=== PATIENT | female | born 1985 | race Caucasian/White ===

== ENCOUNTER 2024-08-31 13:15 | Observation (INO) | payer BC, SELFPAY ==
[2024-08-31] VITALS (43 sets, daily range): BP systolic 115–135; BP diastolic 68–92; PULSE 59–84; RESP 10–19; TEMP 36.8–36.9; O2SAT 94–100; BMI 28.9; BMI 29.6
--- OUTSIDE RECORDS SUMMARY | 2024-08-31 13:17 | XMS_ITS | Clinical Summary ---
Author Organization [employer] [facility] Address [address] [place] [address] Care Team Providers Care Compliance Representative Dealer Name Role Phone Karen Mccarthy Primary Care Provider Allergies Active Allergy Reactions Criticality Noted Date Comments Diphenhydramine Intolerance-Can't Take 07/04/19 08 Keeps her awake Azithromycin GI Upset Unknown 08/07/2022 Medications albuterol HFA (Ventolin HFA) 90 mcg/actuation inhalerIndicatio ns:Simple chronic bronchitis (HC) Inhale 1-2 Puffs by mouth every 4 hours while awake. 3 Each 1 4 Active fluticasone furoate (ARNUITY ELLIPTA) 100 mcg/actuation inhalerIndicatio ns:Simple chronic bronchitis (HC) Inhale 1 Puff by mouth once daily. 30 Each 5 4 Active predniSONE (DELTASONE) 20 mg tabletIndication s:Simple chronic bronchitis (HC) Take 1-2 Tablets (20-40 mg) by mouth once daily. Take for 3-5 days with breathing exacerbation. 30 Tablet 4 Active atovaquone-progu yisel, 250-100 mg, (MALARONE) 250-100 mg tabletIndication s:Pharmacologic therapy Take 1 Tablet by mouth once daily. Begin 2 days before you get to [facility] and continue until 1 week after exposure for prevention of malaria. 19 Tablet 4 Active acetaZOLAMIDE (DIAMOX) 125 mg tabletIndication s:Counseling for travel Take 125 mg by mouth two times daily. Begin 1 day before through 2 days after arriving at highest altitude. 8 Tablet 4 Active predniSONE (DELTASONE) 20 mg tabletIndication s:Chronic obstructive pulmonary disease, unspecified COPD type (HC) Take 2 tablets daily x 5 days, then 1 tablet daily 15 Tablet 4 Active Active Problems Problem Noted Date Diagnosed Date Variants of migraine, not el sewhere classified, without mention of intractable migraine without mention of status migrainosus Overview (09/19/2006): venous angioma Other acne Immunizations Immunization Administration Dates Next Due COVID-19 vaccine (Moderna 10 0mcg/0.5mL) PF, MDV 03/21/2021 Hepatitis A (Adult) 09/04/2023 Hepatitis B (Peds) 05/03/2000,11/18/1999, 000 MMR 08/07/1995 Td (Age >=7 Years) 08/07/1995 Tdap 07/24/2017,07/04/2007 Typhoid (injectable) 09/04/2023 Yellow Fever 09/04/2023 Family History Medical History Relation Name Comments Good Health Brother Cancer-prostate Father Uterine cancer Maternal Aunt 1 chemo and radiation, needed 2nd round of radiation Cancer-breast Maternal Aunt 2 Diabetes Maternal Grandfather adult o nset Cancer Mother lung cancer Lung cancer Mother Good Health Sister Relation Name Status Comments Brother Father Maternal Aunt 1 Maternal Aunt 2 Maternal Grandfather Mother Sister Social History Tobacco Use Types Packs/Day Years Used Date Smoking Tobacco: Former Smokeless Tobacco: Never Tobacco Cessation:Counseling Given: Yes Comments:quit in 2005 Alcohol Use Standard Drinks/Week Comments Yes 0 (1 standard drink = 0.6 oz pur e alcohol) occ PHQ-2 Answer Date Recorded PHQ-2 TOTAL SCORE 0 06/06/2022 Social Connections Answer Date Recorded Frequency of Communication with Friends and Fami ly 0 06/06/2022 Financial Resource Strain Answer Date R ecorded Difficulty of Paying Living Expenses 3 06/06/2022 Difficulty of Paying Living Expenses Not on file 06/06/2022 Food Insecurity Answer Date Recorded Worried About Running Out of Food in the Last Ye ar 1 06/06/2022 Transportation Needs Answer Date Record ed Lack of Transportation (Medical) 1 06/06/2022 Housing Stability Answer Date Recorded Unable to Pay for Housing in the Last Year 1 06/06/2022 Comments No Sex and Gender Information Value Date Recorded Sex Assigned at Not on file Legal Sex Female 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 Gender Identity Not on file Sexual Orientation Not on file Obstetrics History Para Term AB IAB SAB Ectopic Multiple Livin g Live Births 0 0 0 0 0 0 0 0 0 0 Last Filed Vital Signs Vital Sign Reading Time Taken Comments Blood Pressure 116/78 10/10/2023 11:12 AM CDT Pulse 64 10/10/2023 11:12 AM CDT Temperature 36.8 C (98.3 F) 06/13/2021 11:10 AM FIELD AUTOMOBILE ADJUSTER Respiratory Rate - - Oxygen Saturation 100% 10/10/2023 11:12 AM CDT Inhaled Oxygen Concentration - - Weight 72.6 kg (160 lb) 10/10/2023 11:12 AM CDT Height 167.5 cm (5' 5.95) 10/10/2023 11:12 AM C DT Body Mass Index 25.86 10/10/2023 11:12 AM CDT Plan of Treatment Health Maintenance Due Date Last Done Comments HIV for age 15-65 09/30/1998 Hepatitis C screening for ag e 18-79 09/30/2001 Pneumococcal series for age 6-49 (1 of 2 - PCV) 09/30/2002 Pap test for age 21-65 03/15/2023 , 03/21/2016, 03/21/2016, Additional history exists Depression screening for age 12+ 06/06/2023 06/06/2022, 03/15/2020, 07/24/2017, Additional history exists COVID-19 vaccine series ( season) 2023 04/18/2021, 03/21/2021 BMI (ht and wt on same day) for age 18+ 10/09/2024 10/10/2023, 06/06/2022, 03/14/2021, Additional history exists Influenza Vaccine (Season Ended) 2024 Tetanus booster 07/25/2027 07/24/2017, 06/21, 08/07/1995 Tdap Completed 07/24/2017, 07/04/2007 Procedures Procedure Name Priority Date/Time Associated Diagnosis Comments SALESFORCE SPECIALIST THIN PREP PAP SCREEN IMAGED Routine 03/15/2020 3:06 PM FIELD AUTOMOBILE ADJUSTER Screening for cervical cancer from Last 3 Months or Most Recently Relevant to Health Maintenance Results * SALESFORCE SPECIALIST THIN PREP PAP SCREEN IMAGED (03/15/2020 3:06 PM FIELD AUTOMOBILE ADJUSTER) Case Report Gynecologic Cytology Report Case: [id number] Authorizing Provider: Karen Mccarthy PA Collected: 03/15/2020 1506 Ordering Location: [facility] Received: 03/15/2020 1544 Clinic First Screen: Charanjit Ervin Pathologist: Caryn Spencer MD Specimen: SALESFORCE SPECIALIST ThinPrep Vial Screening, Cervical 03/25/2020 2:54 PM FIELD AUTOMOBILE ADJUSTER [employer] [facility] INTERPRETATION/ RESULT NEGATIVE FOR INTRAEPITHELIAL LESION OR MALIGNANCY (NIL) (none) 03/25/2020 2:54 PM FIELD AUTOMOBILE ADJUSTER [facility] at 1454 FIELD AUTOMOBILE ADJUSTER OTHER NON-NEOPLASTIC FINDING(S) Parakeratosis 03/25/2020 2:54 PM FIELD AUTOMOBILE ADJUSTER [employer] [facility] SPECIMEN ADEQUACY Satisfactory for evaluation Endocervical component present 03/25/2020 2:54 PM FIELD AUTOMOBILE ADJUSTER [employer] ENTRAL LAB[facility]ATORY HPV REQUEST HPV if ASCUS 03/25/2020 2:54 PM FIELD AUTOMOBILE ADJUSTER [employer] [facility] Date of LMP 02/29/2020 03/25/2020 2:54 PM FIELD AUTOMOBILE ADJUSTER [facility] Last Pap Date 03/21/16 03/25/2020 2:54 PM FIELD AUTOMOBILE ADJUSTER [facility] Last Pap Result NIL 0 2:54 PM FIELD AUTOMOBILE ADJUSTER [employer] ENTRAL LABORATORY Abnormal Pap or Rociada Bx in last 5 years No 03/25/2020 2:54 PM FIELD AUTOMOBILE ADJUSTER [employer] ENTRAL LABORATORY Menstrual Status Irregular Periods 03/25/2020 2:54 PM FIELD AUTOMOBILE ADJUSTER [employer] ENTRAL [facility] Rociada Bx Done Today No 03/25/2020 2:54 PM FIELD AUTOMOBILE ADJUSTER [facility] ? ENTRAL LABORATORY Additional Information None given 03/25/2020 2:54 PM FIELD AUTOMOBILE ADJUSTER [employer] ENTRAL LABORATORY Comment: Cytology is screened at [facility], Central Laboratory - [address], [place] [address] and [facility] - [address], [place] [address] and [facility] - [address] [place] [address] Interpreted at [facility], Central Laboratory - [address], [place] [address] Automated Review Successful 03/25/2020 2:54 PM FIELD AUTOMOBILE ADJUSTER [facility]- ENTRAL LABORATORY Comment:Specimen processed s uccessfully by automated medical concierge device, [employer] Note The pap test is a screening technique, not a diagnostic procedure. It is used primarily to screen for squamous cancers and precursor lesions. Published studies have shown that it is subject to both false negative and false positive results. The pap test should not be used as the sole means to diagnose or exclude pre-malignant and malignant lesions. 03/25/2020 2:54 PM FIELD AUTOMOBILE ADJUSTER [facility]- ENTRAL LABORATORY Other (Cervical) Non-Blood / Unknown 03/15/2020 3:06 PM FIELD AUTOMOBILE ADJUSTER 03/15/2020 3:44 PM FIELD AUTOMOBILE ADJUSTER us Karen ANNE PATHOLOGY/CYTOLOGY Rema aparicio Result [facility] [address] [place] [address], [place] from Last 3 Months or Most Recently Relevant to Health Maintenance Insurance Care Teams Compliance Representative Dealer Relationship Specialty Start Date End Date Karen Mccarthy [place] [address] PCP - General Physician Auto Mechanic 03/14/21
--- NOTE | 2024-08-31 13:52 | ED.GENADULT ---
HPI - General Adult General Time Seen by Provider: 13:52 Date Seen: 08/31/24 Chief complaint: Dizziness/Vertigo Stated complaint: numbness in both hands/right arm Time Seen by Provider: 08/31/24 13:52 Source: patient and RN notes reviewed Mode of arrival: ambulatory Limitations: no limitations History of Present Illness HPI narrative: Debbie is a very pleasant 38-year-old female nonsmoker who comes to the emergency room with onset of rapid heart rate tingling of the mouth and hands and feeling like she is going to faint. Suzie notes that last night she did have some beer and with he shots but will woke this morning with no hangover and feeling well. She was actually at her mom's at which time they had just moved some plants. She states that she was holding a plant turned her head to the right and had the sudden onset of racing of her heart weakness and feeling like she was going to pass out. She sat herself on the floor and was leaning up against the garage. She states that her body felt very heavy and she was experiencing some nausea. She was breathing quite fast. Her hands started tingling and EN route to the hospital she felt like they were numb. She states her lips felt funny at that time to. Her lower extremities remain normal. She notes that it feeling was coming in waves. Patient notes that here in the emergency room she is somewhat improved. She moves her head and neck and cannot make this recur. She notes that her hands are still tingling but much improved. No loss of bowel or bladder control recent illnesses chest pain congestion. No loss of bowel or bladder control. No history of DVT, PE, recent extended car rides, recent airline trips. Related Data Home Medications ?Medication ?Instructions ?Recorded ?Confirmed fluticasone furoate 100 1 inh inhalation DAILY 08/31/24 08/31/24 mcg/actuation blister powder for inhalation (Arnuity Ellipta) Allergies Allergy/AdvReac Type Severity Reaction Status Date / Time azithromycin AdvReac Mild Abdominal Verified 08/31/24 13:44 Pain Review of Systems Status of ROS: Reports: 10 or more systems reviewed and unremarkable except as noted in History and below Const: Denies: fever or chills Eyes: Reports: other ([place] like she had rapid blinking of the eyes); Denies: change in vision ENMT: Denies: throat pain or nasal congestion Cardio: Reports: palpitations, lightheadedness and shortness of breath with exertion; Denies: chest pain or swelling of feet/ankles Resp: Reports: shortness of breath; Denies: cough GI: Reports: nausea; Denies: abdominal pain or vomiting : Denies: painful urination Musculo: Denies: back pain or extremity swelling Neuro: Denies: headache or slurred speech PFSH PFSH Social History Smoking Status: Former smoker How often do you have a drink containing alcohol: 2-3 times a week How many standard drinks containing alcohol do you have on a typical day: 3 or 4 AUDIT-C Alcohol total score: 4 Non-prescribed substance use: denies use Exam Narrative: Exam Narrative: Alert and oriented. Nontoxic in appearance. Mentation and speech is normal. EOM is full and pupils equal round reactive. Patient has full movement of the neck rotation flexion extension and does not recreate the symptoms. Heart is hyperdynamic and tachycardic and lungs are clear. Abdomen is soft nontender. Moving all extremities. Lower extremities without calf tenderness or edema. Const: Vital Signs, click to edit/add: Vital Signs - 24 hr 08/31/24 13:36 08/31/24 14:28 08/31/24 14:30 Temperature 98.2 F Pulse Rate Pulse Rate [Pulse Oximeter] 84 Respiratory Rate 18 14 12 Blood Pressure Blood Pressure [Ri ght Upper Arm] 115/77 Pulse Oximetry 100 Oxygen Delivery Me thod Room Air 08/31/24 14:45 08/31/24 14:58 08/31/24 15:00 Temperature Pulse Rate 74 72 Pulse Rate [Pulse Oximeter] Respiratory Rate 15 14 15 Blood Pressure 116/79 Blood Pressure [Ri ght Upper Arm] Pulse Oximetry 96 94 Oxygen Delivery Me thod Room Air 08/31/24 15:15 08/31/24 15:30 08/31/24 15:45 Temperature Pulse Rate 73 65 65 Pulse Rate [Pulse Oximeter] Respiratory Rate 12 13 16 Blood Pressure Blood Pressure [Ri ght Upper Arm] Pulse Oximetry 98 97 97 Oxygen Delivery Me thod 08/31/24 16:00 08/31/24 16:01 08/31/24 16:15 Temperature Pulse Rate 69 71 66 Pulse Rate [Pulse Oximeter] Respiratory Rate 11 L 15 16 Blood Pressure 123/83 Blood Pressure [Ri ght Upper Arm] Pulse Oximetry 98 97 98 Oxygen Delivery Me thod 08/31/24 16:30 08/31/24 16:45 08/31/24 17:00 Temperature Pulse Rate 66 68 74 Pulse Rate [Pulse Oximeter] Respiratory Rate 12 14 19 Blood Pressure Blood Pressure [Ri ght Upper Arm] Pulse Oximetry 100 98 100 Oxygen Delivery Me thod 08/31/24 17:15 08/31/24 17:28 08/31/24 17:29 Temperature Pulse Rate 64 62 63 Pulse Rate [Pulse Oximeter] Respiratory Rate 11 L 12 14 Blood Pressure 116/79 Blood Pressure [Ri ght Upper Arm] Pulse Oximetry 99 99 99 Oxygen Delivery Me thod 08/31/24 17:30 08/31/24 17:45 08/31/24 18:00 Temperature Pulse Rate 65 73 65 Pulse Rate [Pulse Oximeter] Respiratory Rate 17 14 15 Blood Pressure Blood Pressure [Ri ght Upper Arm] Pulse Oximetry 98 99 98 Oxygen Delivery Me thod 08/31/24 18:02 08/31/24 18:15 08/31/24 18:30 Temperature Pulse Rate 65 62 64 Pulse Rate [Pulse Oximeter] Respiratory Rate 13 12 16 Blood Pressure 123/68 Blood Pressure [Ri ght Upper Arm] Pulse Oximetry 99 98 98 Oxygen Delivery Me thod 08/31/24 18:45 08/31/24 19:00 08/31/24 19:02 Temperature Pulse Rate 64 63 70 Pulse Rate [Pulse Oximeter] Respiratory Rate 10 L 16 Blood Pressure 122/76 Blood Pressure [Ri ght Upper Arm] Pulse Oximetry 99 98 98 Oxygen Delivery Me thod 08/31/24 19:15 08/31/24 19:30 08/31/24 19:45 Temperature Pulse Rate 65 64 67 Pulse Rate [Pulse Oximeter] Respiratory Rate 10 L 12 Blood Pressure Blood Pressure [Ri ght Upper Arm] Pulse Oximetry 98 99 99 Oxygen Delivery Me thod 08/31/24 20:00 08/31/24 20:02 08/31/24 20:15 Temperature Pulse Rate 64 73 64 Pulse Rate [Pulse Oximeter] Respiratory Rate 13 16 Blood Pressure 135/81 Blood Pressure [Ri ght Upper Arm] Pulse Oximetry 100 99 99 Oxygen Delivery Me thod Room Air 08/31/24 20:30 Temperature Pulse Rate 69 Pulse Rate [Pulse Oximeter] Respiratory Rate Blood Pressure Blood Pressure [Ri ght Upper Arm] Pulse Oximetry 98 Oxygen Delivery Me thod Documenting provider has reviewed patient's vital signs: yes Course Course ED Course: Differential diagnosis includes but is not limited to vertigo, palpitations, SVT, arrhythmia, anxiety. Reevaluation(s) Reevaluation #1: Patient notes resolution of symptoms. She does sleep for an extended period of time. Initial troponin is negative. Plan on 2nd troponin. White count electrolyte panel within normal limits. CRP is negative negative for COVID influenza RSV. Reevaluation #2: Patient continues to be symptom-free. Point of care troponin 0.03 and thus I had a backup in lab which was 0.04. Technically this is still within normal limits but given the rise in the normal range will wait for 2 hours and recheck. Reevaluation #3: Troponin now elevated at 0.08 without any chest pain. cardiac monitor technician remains without any unusual arrhythmia additional eats. Consultations Consultation #1: I had the pleasure of speaking with Dr. Kraft, cardiology in regards to this patient. At this time suggest admission, aspirin, a.m. resting echocardiogram. Would recommend transfer if patient should experience rising troponins or onset of chest pain. Vital Signs Vital signs: Initial Vital Signs Temperature 98.2 F 08/31/24 13:36 Temperature Source Temporal Artery Scan 08/31/24 13:36 Pulse Rate 84 08/31/24 13:36 Respiratory Rate 18 08/31/24 13:36 Blood Pressure 115/77 08/31/24 13:36 Blood Pressure Mean 89 08/31/24 13:36 Pulse Oximetry 100 08/31/24 13:36 Oxygen Delivery Method Room Air 08/31/24 13:36 Vital Signs Temperature 98.2 F 08/31/24 13:36 Pulse Rate 84 08/31/24 13:36 Respiratory Rate 18 08/31/24 13:36 Blood Pressure 115/77 08/31/24 13:36 Pulse Oximetry 100 08/31/24 13:36 Oxygen Delivery Method Room Air 08/31/24 13:36 Temperature 98.2 F 08/31/24 13:36 Pulse Rate 69 08/31/24 20:30 Respiratory Rate 16 08/31/24 20:02 Blood Pressure 135/81 08/31/24 20:02 Pulse Oximetry 98 08/31/24 20:30 Oxygen Delivery Method Room Air 08/31/24 20:02 Medications Administered Medications: Discontinued Medications Generic Name Dose Route Start Last Admin Trade Name Gisel PRN Reason Stop Dose Admin Aspirin 324 mg 08/31/24 19:50 08/31/24 20:17 Aspirin 81 Mg Tab.Chew PO 08/31/24 19:51 Not Given ONCE ONE Sodium Chloride 1,000 mls @ 1,000 mls/hr 08/31/24 14:06 08/31/24 15:47 0.9 % Sodium Chloride 1000 Ml IV 08/31/24 15:05 Infused .Q1H KIRSTEN Infusion Medical Decision Making MDM Narrative Medical decision making narrative: 1. Elevated troponin- patient notes 20-25 minutes of a rapid heart rate sudden in onset at home. Her had given her aspirin prior to transfer to the ER via private vehicle. EKG reassuring with sinus rhythm without any acute ST or T-wave changes. Initial troponin 0. 1, 2nd troponin 0.04 and 3rd troponin 0.08. Patient will be admitted to the hospital for serial cardiac enzymes, continuous cardiac monitoring, echocardiogram tomorrow along with check of lipids and hemoglobin A1c. Patient has received aspirin. 2. Disposition- Transfer to hospitalist for care. I had the pleasure of speaking to Cardiology from [facility]. Dr. Benites Accepts patient to the floor. 2016 hours- hospitalist requesting that we do a 4th troponin at 2100 hours prior to transfer to our floor on [facility]. Update: 2130 hours troponin is 0.08 unchanged from previous. Patient will be transferred to [facility] floor. Lab Data Lab results reviewed: Yes I reviewed the patient's lab results Labs: Lab Results 08/31/24 08/31/24 08/31/24 Range/Units 14:05 14:10 14:15 WBC 5.96 (4.50-11.00) K/uL RBC 4.23 (4.00-5.20) m/uL Hgb 12.6 (12.0-16.0) gm/dL Hct 37.1 (33.0-51.0) % MCV 88 (80-100) fL MCH 30 (26-34) pg MCHC 34 (32-36) gm/dL RDW Coeff of Shantel 12.8 (11.5-15.5) % Plt Count 268 (140-440) K/uL Neut % (Auto) 66.0 (42.0-72.0) % Lymph % (Auto) 21.3 (20-44) % [place]idan % (Auto) 9.9 (0.0-11.0) % Eos % (Auto) 2.3 (0.0-7.0) % Baso % (Auto) 0.5 (0.0-3.0) % Neut # (Auto) 3.93 (1.7-7.0) K/uL Lymph # (Auto) 1.27 (0.90-2.90) K/uL Sheridan # (Auto) 0.60 (0.00-0.90) K/UL Eos # (Auto) 0.14 (0.00-0.50) K/uL Baso # (Auto) 0.03 (0.00-0.30) K/uL Abs Immat Gran (auto) 0.00 (0.00-0.30) K/uL Imm/Tot Granulo (auto) 0.0 % Sodium 137 (135-149) mmol/L Potassium 3.7 (3.6-5.1) mmol/L Chloride 102 (96-114) mmol/L Carbon Dioxide 24 (20-32) mmol/L Anion Gap 11 (7-15) mEq/L BUN 18 (5-24) mg/dL Creatinine 0.9 (0.5-1.5) mg/dL Estimated Creat Clear 71.75 Estimated GFR 83 ml/min Glucose 90 (60-115) mg/dL Calcium 8.8 (8.4-10.6) mg/dL Magnesium 1.6 (1.5-2.6) mg/dL Total Bilirubin 0.7 (0.1-1.5) mg/dL AST 36 H (12-35) U/L ALT 27 (4-35) U/L Alkaline Phosphatase 43 (40-150) U/L Troponin I (0.01-0.04) ng/mL C-Reactive Protein < 0.5 L (0.5-1.0) mg/dL Total Protein 7.0 (6.0-8.3) g/dL Albumin 4.6 (3.3-5.0) g/dL Urine HCG, Qual (Negative) SARS-CoV-2 (PCR) Negative SARS-CoV-2 (Negative) Influenza Type A (PCR) Negative PCR FLU A (Negative) Influenza Type B (PCR) Negative PCR FLU B (Negative) RSV (PCR) Negative PCR RSV (Negative) POC Troponin I 0.01 (0.01-0.04) ng/ml 08/31/24 08/31/24 08/31/24 Range/Units 15:15 15:48 15:56 WBC (4.50-11.00) K/uL RBC (4.00-5.20) m/uL Hgb (12.0-16.0) gm/dL Hct (33.0-51.0) % MCV (80-100) fL MCH (26-34) pg MCHC (32-36) gm/dL RDW Coeff of Shantel (11.5-15.5) % Plt Count (140-440) K/uL Neut % (Auto) (42.0-72.0) % Lymph % (Auto) (20-44) % [place]idan % (Auto) (0.0-11.0) % Eos % (Auto) (0.0-7.0) % Baso % (Auto) (0.0-3.0) % Neut # (Auto) (1.7-7.0) K/uL Lymph # (Auto) (0.90-2.90) K/uL [place] # (Auto) (0.00-0.90) K/UL Eos # (Auto) (0.00-0.50) K/uL Baso # (Auto) (0.00-0.30) K/uL Abs Immat Gran (auto) (0.00-0.30) K/uL Imm/Tot Granulo (auto) % Sodium (135-149) mmol/L Potassium (3.6-5.1) mmol/L Chloride (96-114) mmol/L Carbon Dioxide (20-32) mmol/L Anion Gap (7-15) mEq/L BUN (5-24) mg/dL Creatinine (0.5-1.5) mg/dL Estimated Creat Clear Estimated GFR ml/min Glucose (60-115) mg/dL Calcium (8.4-10.6) mg/dL Magnesium (1.5-2.6) mg/dL Total Bilirubin (0.1-1.5) mg/dL AST (12-35) U/L ALT (4-35) U/L Alkaline Phosphatase (40-150) U/L Troponin I 0.04 (0.01-0.04) ng/mL C-Reactive Protein (0.5-1.0) mg/dL Total Protein (6.0-8.3) g/dL Albumin (3.3-5.0) g/dL Urine HCG, Qual Negative (Negative) SARS-CoV-2 (PCR) (Negative) Influenza Type A (PCR) (Negative) Influenza Type B (PCR) (Negative) RSV (PCR) (Negative) POC Troponin I 0.03 (0.01-0.04) ng/ml 08/31/24 08/31/24 Range/Units 18:59 20:50 WBC (4.50-11.00) K/uL RBC (4.00-5.20) m/uL Hgb (12.0-16.0) gm/dL Hct (33.0-51.0) % MCV (80-100) fL MCH (26-34) pg MCHC (32-36) gm/dL RDW Coeff of Shantel (11.5-15.5) % Plt Count (140-440) K/uL Neut % (Auto) (42.0-72.0) % Lymph % (Auto) (20-44) % [place] % (Auto) (0.0-11.0) % Eos % (Auto) (0.0-7.0) % Baso % (Auto) (0.0-3.0) % Neut # (Auto) (1.7-7.0) K/uL Lymph # (Auto) (0.90-2.90) K/uL [place] # (Auto) (0.00-0.90) K/UL Eos # (Auto) (0.00-0.50) K/uL Baso # (Auto) (0.00-0.30) K/uL Abs Immat Gran (auto) (0.00-0.30) K/uL Imm/Tot Granulo (auto) % Sodium (135-149) mmol/L Potassium (3.6-5.1) mmol/L Chloride (96-114) mmol/L Carbon Dioxide (20-32) mmol/L Anion Gap (7-15) mEq/L BUN (5-24) mg/dL Creatinine (0.5-1.5) mg/dL Estimated Creat Clear Estimated GFR ml/min Glucose (60-115) mg/dL Calcium (8.4-10.6) mg/dL Magnesium (1.5-2.6) mg/dL Total Bilirubin (0.1-1.5) mg/dL AST (12-35) U/L ALT (4-35) U/L Alkaline Phosphatase (40-150) U/L Troponin I 0.08 H* 0.08 H* (0.01-0.04) ng/mL C-Reactive Protein (0.5-1.0) mg/dL Total Protein (6.0-8.3) g/dL Albumin (3.3-5.0) g/dL Urine HCG, Qual (Negative) SARS-CoV-2 (PCR) (Negative) Influenza Type A (PCR) (Negative) Influenza Type B (PCR) (Negative) RSV (PCR) (Negative) POC Troponin I (0.01-0.04) ng/ml Imaging Data Chest x-ray: Attestation: I have reviewed the pertinent imaging results. Radiologist's impression: Cardiomediastinal silhouette and pulmonary vasculature are normal. Streaky right basilar opacities, likely atelectasis. No focal consolidation. No layering pleural effusion. No pneumothorax. No acute chest wall abnormality. IMPRESSION: No focal consolidation. ECG Data Attestation: I personally reviewed and interpreted this ECG as follows: Discharge Plan Discharge Clinical Impression: Tachycardia, Numbness and tingling in both hands Patient Disposition: Home, Self-Care Condition: Improved Additional Instructions: Rest, push fluids. Seek medical attention for recurrence of symptoms. If this does happen again would suggest a cardiac monitor technician. Return as needed Prescriptions: No Action Arnuity Ellipta 100 mcg/actuation blister with device 1 inh INHALATION DAILY Follow Up/Referrals: Provider,Not a Local [Primary Care Provider] - Stand Alone [facility]: [facility] Instructions
--- NOTE | 2024-08-31 14:06 | CRLHL7_ITS ---
For Patients: As a result of the Cures Act, medical imaging exams and procedure reports are released immediately into your electronic medical record. You may view this report before your referring provider. If you have questions, please contact your health care provider. INDICATION: Rapid heart rate. TECHNIQUE: Chest 1 view(s) COMPARISON: None. FINDINGS: Cardiomediastinal silhouette and pulmonary vasculature are normal. Streaky right basilar opacities, likely atelectasis. No focal consolidation. No layering pleural effusion. No pneumothorax. No acute chest wall abnormality. IMPRESSION: No focal consolidation. Dictated by Vlad Josue MD @ 08/31/2024 3:22:45 PM (Electronically Signed)
--- OUTSIDE RECORDS SUMMARY | 2024-08-31 14:15 | XMS_ITS | Clinical Summary ---
Author Organization [facility] Address [address] [place] [id number] Care Team Providers Care Experimental Electronics Developer Name Role Phone Karen Mccarthy Primary Care [...] Begin 2 days before you get to [facility] and continue until 1 week after exposure [...] on file Legal Sex Female 5:26 AM EDGE GLUER Gender Identity Not on file Sexual Orientation [...] 36.8 C (98.3 F) 06/13/2021 11:10 AM EDGE GLUER Respiratory Rate - - Oxygen Saturation 100% [...] Procedure Name Priority Date/Time Associated Diagnosis Comments CELLULAR EQUIPMENT INSTALLER THIN PREP PAP SCREEN IMAGED Routine 03/15/2020 3:06 PM EDGE GLUER Screening for cervical cancer from Last 3 Months or Most Recently Relevant to Health Maintenance Results * CELLULAR EQUIPMENT INSTALLER THIN PREP PAP SCREEN IMAGED (03/15/2020 3:06 PM EDGE GLUER) Case Report Gynecologic Cytology Report Case: [id number] Authorizing Provider: Karen Mccarthy PA Collected: 03/15/2020 1506 Ordering Location: [facility] Received: 03/15/2020 1544 Clinic First Screen: Charanjit Ervin Pathologist: Caryn Spencer MD Specimen: CELLULAR EQUIPMENT INSTALLER ThinPrep Vial Screening, Cervical 03/25/2020 2:54 PM EDGE GLU[facility] INTERPRETATION/ RESULT NEGATIVE FOR INTRAEPITHELIAL LESION OR MALIGNANCY (NIL) (none) 03/25/2020 2:[address] [id number] EDGE GLUER OTHER NON-NEOPLASTIC FINDING(S) Parakeratosis 03/25/2020 2:54 PM EDGE GLU[facility] SPECIMEN ADEQUACY Satisfactory for evaluation Endocervical component present 03/25/2020 2:54 PM EDGE GLU[facility] HPV REQUEST HPV if ASCUS 03/25/2020 2:54 PM [facility]GE GLU[facility] Date of LMP 02/29/2020 03/25/2020 2:[address] [facility] Last Pap Date 03/21/16 03/25/2020 2:[address] [facility] Last Pap Result NIL 0 2:54 PM EDGE GLU[facility] Abnormal Pap or Pierce Bx in last 5 years No 03/25/2020 2:54 PM EDGE GLU[facility] Menstrual Status Irregular Periods 03/25/2020 2:54 PM EDGE GLUER [facility] Pierce Bx Done Today No 03/25/2020 2:54 PM EDGE GLUER [facility] [employer] [facility] Additional Information None given 03/25/2020 2:54 PM EDGE GLUER [facility] Comment: Cytology is screened at [facility] - [address], [place] [address] and [facility] - [address], [place] [address] and [facility] - [address] [place] [address] Interpreted at [facility], [facility] - [address], [place] [address] Automated Review Successful 03/25/2020 2:54 PM EDGE GLUER [facility]- ENTRAL [facility]ATORY Comment:Specimen processed s uccessfully by automated ed case manager device, [employer] System, [employer] Note The pap test is a screening technique, not a diagnostic procedure. It is used primarily to screen for squamous cancers and precursor lesions. Published studies have shown that it is subject to both false negative and false positive results. The pap test should not be used as the sole means to diagnose or exclude pre-malignant and malignant lesions. 03/25/2020 2:54 PM EDGE GLUER [facility] EN[facility]AL [facility] Other (Cervical) Non-Blood / Unknown 03/15/2020 3:06 PM EDGE GLUER 03/15/2020 3:44 PM EDGE GLUER us Karen ANNE PATHOLOGY/CYTOLOGY Rema aparicio Result [facility] [address] [place] [address], [place] from Last 3 Months or Most Recently Relevant to Health Maintenance Insurance Care Teams Experimental Electronics Developer Relationship Specialty Start Date End Date Karen Mccarthy [place] [address] PCP - General Physician Executive Administrative Asst 03/14/21
[2024-08-31 14:22] LABS: Basophils Absolute Auto 0.03 K/uL (0.00-0.30); Basophils Percent Auto 0.5 % (0.0-3.0); Eosinophils Absolute Auto 0.14 K/uL (0.00-0.50); Eosinophils Percent Auto 2.3 % (0.0-7.0); Hematocrit 37.1 % (33.0-51.0); Hemoglobin* 12.6 gm/dL (12.0-16.0); Lymphocytes Absolute Auto 1.27 K/uL (0.90-2.90); Lymphocytes Percent Auto 21.3 % (20-44); Mean Corpuscular HGB Conc 34 gm/dL (32-36); Mean Corpuscular Hemoglobin 30 pg (26-34); Mean Corpuscular Volume 88 fL (80-100); Monocytes Percent Auto 9.9 % (0.0-11.0); Neutrophils Absolute Auto 3.93 K/uL (1.7-7.0); Platelet Count* 268 K/uL (140-440); RDW Coefficient of Variation % 12.8 % (11.5-15.5); Red Blood Count 4.23 m/uL (4.00-5.20); White Blood Count* 5.96 K/uL (4.50-11.00)
[2024-08-31 14:24] LABS: Slide Review Reflex No
[2024-08-31 14:34] LABS: Albumin* 4.6 g/dL (3.3-5.0); Chloride* 102 mmol/L (96-114); Potassium* 3.7 mmol/L (3.6-5.1); Sodium* 137 mmol/L (135-149)
[2024-08-31 14:37] LABS: Alanine Aminotransferase* 27 U/L (4-35); Alkaline Phosphatase* 43 U/L (40-150); Anion Gap 11 mEq/L (7-15); Aspartate Amino Transferase* 36 U/L (12-35); Bilirubin Total* 0.7 mg/dL (0.1-1.5); Blood Urea Nitrogen* 18 mg/dL (5-24); Carbon Dioxide* 24 mmol/L (20-32); Creatinine* 0.9 mg/dL (0.5-1.5); Est. Creatinine Clearance* 71.75; Estimated Glomerular Filt Rate 83 ml/min
[2024-08-31 14:38] LABS: Calcium* 8.8 mg/dL (8.4-10.6); Glucose* 90 mg/dL (60-115); Magnesium* 1.6 mg/dL (1.5-2.6)
[2024-08-31] MEDS: 0.9 % SODIUM CHLORIDE 1000 ml 1,000 ML IV (14:41)
[2024-08-31 14:46] LABS: C Reactive Protein* < 0.5 mg/dL (0.5-1.0)
[2024-08-31 14:51] LABS: Troponin, Point-of-Care* 0.01 ng/ml (0.01-0.04)
[2024-08-31 15:21] LABS: PCR FLU A Negative PCR FLU A (Negative); PCR FLU B Negative PCR FLU B (Negative); PCR RSV Negative PCR RSV (Negative); SARS PCR* Negative SARS-CoV-2 (Negative)
[2024-08-31 15:22] LABS: Ur HCG Qualitative* Negative (Negative)
[2024-08-31 16:18] LABS: Troponin, Point-of-Care* 0.03 ng/ml (0.01-0.04)
[2024-08-31 17:10] LABS: Troponin I* 0.04 ng/mL (0.01-0.04)
[2024-08-31 19:38] LABS: Troponin I* 0.08 ng/mL (0.01-0.04)
[2024-08-31 21:29] LABS: Troponin I* 0.08 ng/mL (0.01-0.04)
--- NOTE | 2024-08-31 22:36 | P.IMHP_ITS ---
Assessment and Plan Assessment and plan (1) Tachycardia: Problem comment: - transient tachyarrhythmia palpitations lasting 45 minutes total - D/Dx: SVT, A. Fib./A. Flutter, VT - mild elevation in Trop I 0.01, 0.04, 0.08, 0.08 - admit for observation, serial trop i, serial ECG, telemetry, ECHO, and possible stress test - ASA - check TSH, lipids Status: Acute (2) Numbness and tingling in both hands: Problem comment: - hyperventilation reaction to palpitations Status: Acute Plan 1. Reviewed impression, plans, recommendations with patient and 2. Answered his questions 3. They are agreeable with above stated plans 4. Continue with other supportive efforts Total Time Spent Total Time Spent: 70 minutes Hospitalist- H&P: HPI History of Present Illness Date Seen: 08/31/24 Chief complaint: transient symptomatic tachyarrhythmia Narrative: Debbie Quintana is a 38 year old woman generally in good health who presents to the [facility] ED with c/o transient symptomatic tachyarrhythmia palpitations lasting a total of about 45 minutes today. She has never had anything like this in the past. She was preparing to plant mendez for her mother this occurred this afternoon. Shortly after the onset on these palpitations she started to have numbness and tingling in hands and lips - she was admittedly anxious about the palpitations. The heaving palpitations lasted continuously for about 25 minutes, then off and on for another 20 mintutes, for a total of about 45 minutes. By the time she arrived at the ED the palpitations had abated, but the numbness and tingling was persistent for a short time longer. Denied additional symptoms including angina, angina equivalent, syncope, near syncope, nausea, vomiting, diaphoresis, cough, shortness of breath. In the ED she remained symptom free for several hours. Initial Trop-I was 0.01. 2.5 hours later the Trop-I was 0.04. 2 hours later the trop-I was 0.08. 2 hours later the trop I was 0.08. The ECG demonstrated NSR. The telemetry was NSR throughout the entire time she was in the ED. Again, she was asymptomatic while in the ED. Discussion with metal door assembler at [facility] undertaken, who recommended ASA 325 mg, monitor in hospital, check resting ECHO and if normal then plan on exercise stress test. Consider discussion again with metal door assembler if needed at any time. Review of Systems Status of ROS: Reports: 6 or more systems reviewed and unremarkable except as noted in History and below Narrative: Healthy. No limitations in activities. Had an episode this past winter with chest heaviness lasting a few minutes, unprovoked. No similar symptoms prior or since. Despite diagnosis of chronic obstructive asthma, well managed and able to carry out all activities without limitations, including high altitude travel. No recent fever, rigors, diaphoresis. No recent illnesses. No recent travel or trauma. No recent blood loss. [facility] Medical History Former smoker ?Z87.891 - Personal history of nicotine dependence (ICD-10) Chronic obstructive asthma ?J44.89 - Other specified chronic obstructive pulmonary disease (ICD-10) Migraine syndrome ?G43.909 - Migraine, unspecified, not intractable, without status migrainosus (ICD-10) Other acne ?L70.8 - Other acne (ICD-10) Family History Mother Lung cancer Aunt Breast cancer Uterine cancer Father Prostate cancer Maternal Grandfather Diabetes Social History What is your current living situation?: I presently have a place to live Problems where you live: no known problems Problems where you live details: N/A In the past 12 months, utilities in danger of being shut off: no In past 12 months, lack of transportation kept you from medical appts, meetings, work, or getting things needed for daily living: no In the past 12 mos, have been you worried that your food would run out before you had money to buy more?: never true In the past 12 mos, the food you bought just didn't last and you didn't have money to buy more?: never true Highest level of school completed/degree received: Bachelor's degree Smoking Status: Former smoker How often do you have a drink containing alcohol: 2-3 times a week Alcohol type: wine How many standard drinks containing alcohol do you have on a typical day: 3 or 4 How often do you have six or more drinks on one occasion: Never AUDIT-C Alcohol total score: 4 Non-prescribed substance use: denies use How often does anyone, including family, friends and others, physically hurt you : never How often does anyone, including family, friends and others, insult or talk down to you: never How often does anyone, including family, friends and others, threaten you with harm: never How often does anyone, including family, friends and others, scream or curse at you: never Meds Home Medications and Allergies Home Medications ?Medication ?Instructions ?Recorded ?Confirmed ?Type fluticasone furoate 100 1 inh inhalation DAILY 08/31/24 08/31/24 History mcg/actuation blister powder for inhalation (Arnuity Ellipta) Allergies Allergy/AdvReac Type Severity Reaction Status Date / Time azithromycin AdvReac Mild Abdominal Verified 08/31/24 13:44 Pain Exam Narrative: Exam Narrative: No acute distress. A, Ox4. Cooperative. Independent with transfer, station, gait. No focal motor deficits. Lungs CTA, without wheezing, rhonchi, or rales. Heart tones with regular rhythm, normal S1S2, soft systolic murmur over left sternal border. No gallop or rub. Abdomen is benign. Extremities with no edema. Capillary refill less than 3 seconds. Skin is intact. Const: Vital Signs, click to edit/add: Vital Signs - 24 hr 08/31/24 13:36 08/31/24 14:28 08/31/24 14:30 Temperature 98.2 F Pulse Rate Pulse Rate [Pulse Oximeter] 84 Pulse Rate [Right Pulse Oximeter] Respiratory Rate 18 14 12 Blood Pressure Blood Pressure [Ri ght Arm] Blood Pressure [Ri ght Upper Arm] 115/77 Pulse Oximetry 100 Oxygen Delivery Me thod Room Air 08/31/24 14:45 08/31/24 14:58 08/31/24 15:00 Temperature Pulse Rate 74 72 Pulse Rate [Pulse Oximeter] Pulse Rate [Right Pulse Oximeter] Respiratory Rate 15 14 15 Blood Pressure 116/79 Blood Pressure [Ri ght Arm] Blood Pressure [Ri ght Upper Arm] Pulse Oximetry 96 94 Oxygen Delivery Me thod Room Air 08/31/24 15:15 08/31/24 15:30 08/31/24 15:45 Temperature Pulse Rate 73 65 65 Pulse Rate [Pulse Oximeter] Pulse Rate [Right Pulse Oximeter] Respiratory Rate 12 13 16 Blood Pressure Blood Pressure [Ri ght Arm] Blood Pressure [Ri ght Upper Arm] Pulse Oximetry 98 97 97 Oxygen Delivery Mt thod 08/31/24 16:00 08/31/24 16:01 08/31/24 16:15 Temperature Pulse Rate 69 71 66 Pulse Rate [Pulse Oximeter] Pulse Rate [Right Pulse Oximeter] Respiratory Rate 11 L 15 16 Blood Pressure 123/83 Blood Pressure [Ri ght Arm] Blood Pressure [Ri ght Upper Arm] Pulse Oximetry 98 97 98 Oxygen Delivery Mt thod 08/31/24 16:30 08/31/24 16:45 08/31/24 17:00 Temperature Pulse Rate 66 68 74 Pulse Rate [Pulse Oximeter] Pulse Rate [Right Pulse Oximeter] Respiratory Rate 12 14 19 Blood Pressure Blood Pressure [Ri ght Arm] Blood Pressure [Ri ght Upper Arm] Pulse Oximetry 100 98 [facility] 17:15 08/31/24 17:28 08/31/24 17:29 Temperature Pulse Rate 64 62 63 Pulse Rate [Pulse Oximeter] Pulse Rate [Right Pulse Oximeter] Respiratory Rate 11 L 12 14 Blood Pressure 116/79 Blood Pressure [Ri ght Arm] Blood Pressure [Ri ght Upper Arm] Pulse Oximetry 99 99 99 [facility] 08/[facility]/24 17:30 08/31/24 17:45 08/31/24 18:00 Temperature Pulse Rate 65 73 65 Pulse Rate [Pulse Oximeter] Pulse Rate [Right Pulse Oximeter] Respiratory Rate 17 14 15 Blood Pressure Blood Pressure [Ri ght Arm] Blood Pressure [Ri ght Upper Arm] Pulse Oximetry 98 99 98 Oxygen Delivery Mt thod 08/31/24 18:02 08/31/24 18:15 08/31/24 18:30 Temperature Pulse Rate 65 62 64 Pulse Rate [Pulse Oximeter] Pulse Rate [Right Pulse Oximeter] Respiratory Rate 13 12 16 Blood Pressure 123/68 Blood Pressure [Ri ght Arm] Blood Pressure [Ri ght Upper Arm] Pulse Oximetry 99 98 98 Oxygen Delivery Mt thod 08/31/24 18:45 08/31/24 19:00 08/31/24 19:02 Temperature Pulse Rate 64 63 70 Pulse Rate [Pulse Oximeter] Pulse Rate [Right Pulse Oximeter] Respiratory Rate 10 L 16 Blood Pressure 122/76 Blood Pressure [Ri ght Arm] Blood Pressure [Ri ght Upper Arm] Pulse Oximetry 99 98 98 Oxygen Delivery Me thod 08/31/24 19:15 08/31/24 19:30 08/31/24 19:45 Temperature Pulse Rate 65 64 67 Pulse Rate [Pulse Oximeter] Pulse Rate [Right Pulse Oximeter] Respiratory Rate 10 L 12 Blood Pressure Blood Pressure [Ri ght Arm] Blood Pressure [Ri ght Upper Arm] Pulse Oximetry 98 99 99 Oxygen Delivery Me thod 08/31/24 20:00 08/31/24 20:02 08/31/24 20:15 Temperature Pulse Rate 64 73 64 Pulse Rate [Pulse Oximeter] Pulse Rate [Right Pulse Oximeter] Respiratory Rate 13 16 Blood Pressure 135/81 Blood Pressure [Ri ght Arm] Blood Pressure [Ri ght Upper Arm] Pulse Oximetry 100 99 99 [facility] 08/31/24 20:30 08/31/24 20:45 08/31/24 21:00 Temperature Pulse Rate 69 67 63 Pulse Rate [Pulse Oximeter] Pulse Rate [Right Pulse Oximeter] Respiratory Rate 19 11 L Blood Pressure Blood Pressure [Ri ght Arm] Blood Pressure [Ri ght Upper Arm] Pulse Oximetry 98 97 99 Oxygen Delivery Me thod 08/31/24 21:02 08/31/24 21:15 08/31/24 21:30 Temperature Pulse Rate 61 59 L 61 Pulse Rate [Pulse Oximeter] Pulse Rate [Right Pulse Oximeter] Respiratory Rate 14 12 14 Blood Pressure 123/84 Blood Pressure [Ri ght Arm] Blood Pressure [Ri ght Upper Arm] Pulse Oximetry 99 99 99 Oxygen Delivery Me thod 08/31/24 21:58 08/31/24 21:58 08/31/24 22:28 Temperature 98.4 F Pulse Rate Pulse Rate [Pulse Oximeter] Pulse Rate [Right Pulse Oximeter] 65 72 Respiratory Rate 14 14 14 Blood Pressure Blood Pressure [Ri ght Arm] 126/92 H Blood Pressure [Ri ght Upper Arm] Pulse Oximetry 99 99 Oxygen Delivery Me thod Room Air Room Air 08/31/24 22:30 Temperature 98.4 F Pulse Rate Pulse Rate [Pulse Oximeter] Pulse Rate [Right Pulse Oximeter] 72 Respiratory Rate 14 Blood Pressure Blood Pressure [Ri ght Arm] 133/89 Blood Pressure [Ri ght Upper Arm] Pulse Oximetry 99 Oxygen Delivery Me thod Room Air Hospitalist - H&P: Result Labs Labs: Short CBC 08/31/24 Range/Units 14:15 WBC 5.96 (4.50-11.00) K/uL Hgb 12.6 (12.0-16.0) gm/dL Hct 37.1 (33.0-51.0) % Plt Count 268 (140-440) K/uL BMP 08/31/24 14:15 Sodium 137 Potassium 3.7 Chloride 102 Carbon Dioxide 24 BUN 18 Creatinine 0.9 Glucose 90 Calcium 8.8 Cardiac Enzymes 08/31/24 08/31/24 08/31/24 Range/Units 15:56 18:59 20:50 Troponin I 0.04 0.08 H* 0.08 H* (0.01-0.04) ng/mL Liver Function 08/31/24 Range/Units 14:15 Total Bilirubin 0.7 (0.1-1.5) mg/dL AST 36 H (12-35) U/L ALT 27 (4-35) U/L Alkaline Phosphatase 43 (40-150) U/L Albumin 4.6 (3.3-5.0) g/dL ECG Attestation: I personally reviewed and interpreted this ECG as follows: ECG interpretation date: 08/31/24 Prior ECG tracings: not available for review Interpretation: NSR Imaging Chest x-ray: Attestation: I have reviewed the pertinent imaging results. Radiologist's impression: No acute abnormalities.
[2024-08-31] MEDS: ENOXAPARIN 40 MG/0.4 ML INJ SUBCUT (23:06)
[2024-08-31 23:34] LABS: Thyroid Stimulating Hormone* 0.437 uIU/mL (0.270-4.20)
[2024-09-01 00:09] VITALS: BP 115/64; PULSE 74; RESP 14; O2SAT 100
[2024-09-01 03:00] VITALS: BP 115/64; PULSE 74; RESP 14; TEMP 36.9; O2SAT 100
--- NOTE | 2024-09-01 04:23 | PC.NURSE ---
Shift note: Patient arrived at the floor at 2150 on wheelchair accompanied by . Patient was alert and oriented, v/s were stable on arrival. Patient stated that the symptoms presented to ER including rapid HR, tingling sensation to the mouth, hands and feet, and syncopal feeling were resolved even before coming to the floor. MD was in the room to explain to patient and about the symptoms, possible differentials and plan of care. At 0210, patient called nurse and reported that she experienced transient palpitation similar to her previous experience. At that time, patient said it was just a brief episode lasted for about 10-15 seconds and she is feeling well. Vital signs were checked and recorded as T 98.4, P 94, O2 100, RR 14, and Bp 115/64. Telemetry was NSR. Patient has since been sleeping well without any other symptoms.
[2024-09-01 06:37] LABS: Hematocrit 34.1 % (33.0-51.0); Hemoglobin* 11.4 gm/dL (12.0-16.0); Mean Corpuscular HGB Conc 33 gm/dL (32-36); Mean Corpuscular Hemoglobin 30 pg (26-34); Mean Corpuscular Volume 89 fL (80-100); Platelet Count* 241 K/uL (140-440); Red Blood Count 3.85 m/uL (4.00-5.20); White Blood Count* 3.57 K/uL (4.50-11.00)
[2024-09-01 06:39] LABS: Lactate* 0.5 mmol/L (0.5-1.9); Slide Review Reflex No
[2024-09-01 06:58] LABS: Cholesterol* 190 mg/dL (90-199); HDL Cholesterol* 91 mg/dL (>=50); LDL Cholesterol Calculated 73 mg/dL (<100); Triglycerides* 131 mg/dL (40-149)
[2024-09-01 07:10] LABS: Troponin I* 0.04 ng/mL (0.01-0.04)
[2024-09-01 07:16] LABS: NT Pro B Type NatriureticPept* 202 pg/mL
[2024-09-01 07:57] VITALS: PULSE 56
[2024-09-01 08:57] VITALS: BP 125/77; PULSE 57; RESP 16; TEMP 36.5; O2SAT 98
--- NOTE | 2024-09-01 10:14 | PC.SOCIAL ---
Emergency Department Director Initial Check-In: SW met with patient to introduce SW role. Patient states that she has no concerns or questions. Patient states she has great support from family and friends. SW to assist if needs arise.
--- NOTE | 2024-09-01 11:53 | P.DS_ITS ---
DS: Providers Provider Time Seen by Provider: 09:00 Date Seen: 09/01/24 Date of admission: 08/31/24 21:49 Primary care physician: Not a Local Provider Admitting Clinician: Jerry Villavicencio MD Attending Physician on discharge: Zaida Owusu MD Date of Discharge: 09/01/24 DS: Diagnosis Discharge Diagnosis (1) Tachycardia: Status: Acute Problem details: - transient tachyarrhythmia palpitations lasting 45 minutes total - D/Dx: SVT, A. Fib./A. Flutter, VT - mild elevation in Trop I 0.01, 0.04, 0.08, 0.08 - admit for observation, serial trop i, serial ECG, telemetry, ECHO, and possible stress test - ASA - check TSH, lipids - 09/01 TSH wnl, Lipid panel okay. ECHO reassuring. I spoke with Dr. Flores from [place] [facility] who recommended ziopatch in addition to outpatient stress test. These are ordered. I asked patient to establish and f/u with [facility] PCP in 1 week. (2) Elevated troponin I level: Status: Acute Problem details: - mild elevated after event, resolved. (3) Numbness and tingling in both hands: Status: Acute Problem details: - hyperventilation reaction to palpitations DS: Summary Hospital Course Hospital Course: Per H&P: Debbie Quintana is a 38 year old woman generally in good health who presents to the [facility] ED with c/o transient symptomatic tachyarrhythmia palpitations lasting a total of about 45 minutes today. She has never had anything like this in the past. She was preparing to plant mendez for her mother this occurred this afternoon. Shortly after the onset on these palpitations she started to have numbness and tingling in hands and lips - she was admittedly anxious about the palpitations. The heaving palpitations lasted continuously for about 25 minutes, then off and on for another 20 mintutes, for a total of about 45 minutes. By the time she arrived at the ED the palpitations had abated, but the numbness and tingling was persistent for a short time longer. Denied additional symptoms including angina, angina equivalent, syncope, near syncope, nausea, vomiting, diaphoresis, cough, shortness of breath. In the ED she remained symptom free for several hours. Initial Trop-I was 0.01. 2.5 hours later the Trop-I was 0.04. 2 hours later the trop-I was 0.08. 2 hours later the trop I was 0.08. The ECG demonstrated NSR. The telemetry was NSR throughout the entire time she was in the ED. Again, she was asymptomatic while in the ED. Discussion with mop man at [facility] undertaken, who recommended ASA 325 mg, monitor in hospital, check resting ECHO and if normal then plan on exercise stress test. Consider discussion again with mop man if needed at any time. Debbie notes that her symptoms completely resolved about an hour after the for started. She received aspirin 325 mg p.o. in the emergency department. Troponin peak was 0.08 and is 0.04 this morning.. Echocardiogram today is reassuring. I spoke with Dr. Flores who recommended outpatient exercise stress test and Zio patch which have been ordered. I have asked patient to establish and follow-up with a primary care provider in a week. She is discharged in improved and stable condition. Time Spent with Patient Time attestation: Total time spent providing and/or coordinating discharge services: Today I spent 40 minutes seeing the patient, discussing results with the patient and her , Edmundo, discussing case with Dr. Flores, completing the discharge, reviewing Expanse and EPIC notes/diagnostics/labs, discussing the care plan with our care team that includes social work, PT/OT, pharmacy, RT, prison and documenting my impressions and plan in the medical record. Exam Narrative: Exam Narrative: General: No acute distress. Awake, alert, oriented x3. No pallor. No jaundice. Oropharynx: Clear. Mucous membranes moist. Cardiovascular: Regular rate and rhythm. No murmurs, gallops, or rubs. Respiratory: Clear to auscultation bilaterally. No wheezes or crackles. Abdomen: Bowel sounds present. Soft, nondistended, nontender. Extremities: No lower extremity edema. Const: Vital Signs, click to edit/add: Vital Signs - 24 hr 08/31/24 13:36 08/31/24 14:28 08/31/24 14:30 Temperature 98.2 F Pulse Rate Pulse Rate [Pulse Oximeter] 84 Pulse Rate [Right Pulse Oximeter] Respiratory Rate 18 14 12 Blood Pressure Blood Pressure [Ri ght Arm] Blood Pressure [Ri ght Upper Arm] 115/77 Pulse Oximetry [facility] 08/31/24 14:45 08/31/24 14:58 08/31/24 15:00 Temperature Pulse Rate 74 72 Pulse Rate [Pulse Oximeter] Pulse Rate [Right Pulse Oximeter] Respiratory Rate 15 14 15 Blood Pressure 116/79 Blood Pressure [Ri ght Arm] Blood Pressure [Ri ght Upper Arm] Pulse Oximetry 96 94 [facility] 08/31/24 15:15 08/31/24 15:30 08/31/24 15:45 Temperature Pulse Rate 73 65 65 Pulse Rate [Pulse Oximeter] Pulse Rate [Right Pulse Oximeter] Respiratory Rate 12 13 16 Blood Pressure Blood Pressure [Ri ght Arm] Blood Pressure [Ri ght Upper Arm] Pulse Oximetry 98 97 97 [facility] 08/31/24 16:00 08/31/24 16:01 08/31/24 16:15 Temperature Pulse Rate 69 71 66 Pulse Rate [Pulse Oximeter] Pulse Rate [Right Pulse Oximeter] Respiratory Rate 11 L 15 16 Blood Pressure 123/83 Blood Pressure [Ri ght Arm] Blood Pressure [Ri ght Upper Arm] Pulse Oximetry 98 97 98 [facility] 08/31/24 16:30 08/31/24 16:45 08/31/24 17:00 Temperature Pulse Rate 66 68 74 Pulse Rate [Pulse Oximeter] Pulse Rate [Right Pulse Oximeter] Respiratory Rate 12 14 19 Blood Pressure Blood Pressure [Ri ght Arm] Blood Pressure [Ri ght Upper Arm] Pulse Oximetry 100 98 100 [facility] 08/31/24 17:15 08/31/24 17:28 08/31/24 17:29 Temperature Pulse Rate 64 62 63 Pulse Rate [Pulse Oximeter] Pulse Rate [Right Pulse Oximeter] Respiratory Rate 11 L 12 14 Blood Pressure 116/79 Blood Pressure [Ri ght Arm] Blood Pressure [Ri ght Upper Arm] Pulse Oximetry 99 99 99 [facility] 08/31/24 17:30 08/31/24 17:45 08/31/24 18:00 Temperature Pulse Rate 65 73 65 Pulse Rate [Pulse Oximeter] Pulse Rate [Right Pulse Oximeter] Respiratory Rate 17 14 15 Blood Pressure Blood Pressure [Ri ght Arm] Blood Pressure [Ri ght Upper Arm] Pulse Oximetry 98 99 98 [facility] 08/31/24 18:02 08/31/24 18:15 08/31/24 18:30 Temperature Pulse Rate 65 62 64 Pulse Rate [Pulse Oximeter] Pulse Rate [Right Pulse Oximeter] Respiratory Rate 13 12 16 Blood Pressure 123/68 Blood Pressure [Ri ght Arm] Blood Pressure [Ri ght Upper Arm] Pulse Oximetry 99 98 98 [facility] 08/31/24 18:45 08/31/24 19:00 08/31/24 19:02 Temperature Pulse Rate 64 63 70 Pulse Rate [Pulse Oximeter] Pulse Rate [Right Pulse Oximeter] Respiratory Rate 10 L 16 Blood Pressure 122/76 Blood Pressure [Ri ght Arm] Blood Pressure [Ri ght Upper Arm] Pulse Oximetry 99 98 98 [facility] 08/31/24 19:15 08/31/24 19:30 08/31/24 19:45 Temperature Pulse Rate 65 64 67 Pulse Rate [Pulse Oximeter] Pulse Rate [Right Pulse Oximeter] Respiratory Rate 10 L 12 Blood Pressure Blood Pressure [Ri ght Arm] Blood Pressure [Ri ght Upper Arm] Pulse Oximetry 98 99 99 Oxygen Delivery [facility] 08/31/24 20:00 08/31/24 20:02 08/31/24 20:15 Temperature Pulse Rate 64 73 64 Pulse Rate [Pulse Oximeter] Pulse Rate [Right Pulse Oximeter] Respiratory Rate 13 16 Blood Pressure 135/81 Blood Pressure [Ri ght Arm] Blood Pressure [Ri ght Upper Arm] Pulse Oximetry 100 99 99 Oxygen Delivery [facility] Room Air 08/31/24 20:30 08/31/24 20:45 08/31/24 21:00 Temperature Pulse Rate 69 67 63 Pulse Rate [Pulse Oximeter] Pulse Rate [Right Pulse Oximeter] Respiratory Rate 19 11 L Blood Pressure Blood Pressure [Ri ght Arm] Blood Pressure [Ri ght Upper Arm] Pulse Oximetry 98 97 99 [facility] 08/31/24 21:02 08/31/24 21:15 08/31/24 21:30 Temperature Pulse Rate 61 59 L 61 Pulse Rate [Pulse Oximeter] Pulse Rate [Right Pulse Oximeter] Respiratory Rate 14 12 14 Blood Pressure 123/84 Blood Pressure [Ri ght Arm] Blood Pressure [Ri ght Upper Arm] Pulse Oximetry 99 99 99 [facility] 08/31/24 21:58 05/11/25 21:58 08/31/24 22:28 Temperature 98.4 F Pulse Rate Pulse Rate [Pulse Oximeter] Pulse Rate [Right Pulse Oximeter] 65 72 Respiratory Rate 14 14 14 Blood Pressure Blood Pressure [Ri ght Arm] 126/92 H Blood Pressure [Ri ght Upper Arm] Pulse Oximetry 99 99 Oxygen Delivery [facility] Room Air Room Air 08/31/24 22:30 08/31/24 23:00 08/31/24 23:00 Temperature 98.4 F Pulse Rate 65 Pulse Rate [Pulse Oximeter] Pulse Rate [Right Pulse Oximeter] 72 Respiratory Rate 14 14 Blood Pressure Blood Pressure [Ri ght Arm] 133/89 Blood Pressure [Ri ght Upper Arm] Pulse Oximetry 99 99 Oxygen Delivery [facility] Room Air Room Air 08/31/24 23:00 09/01/24 00:09 09/01/24 03:00 Temperature 98.4 F 98.4 F Pulse Rate Pulse Rate [Pulse Oximeter] Pulse Rate [Right Pulse Oximeter] 72 74 74 Respiratory Rate 14 14 14 Blood Pressure Blood Pressure [Ri ght Arm] 133/89 115/64 115/64 Blood Pressure [Ri ght Upper Arm] Pulse Oximetry 99 100 100 Oxygen Delivery [facility] Room Air Room Air Room Air 09/01/24 07:57 09/01/24 08:57 09/01/24 08:57 Temperature 97.7 F Pulse Rate 56 L Pulse Rate [Pulse Oximeter] Pulse Rate [Right Pulse Oximeter] 57 L Respiratory Rate 16 16 Blood Pressure Blood Pressure [Ri ght Arm] 125/77 Blood Pressure [Ri ght Upper Arm] Pulse Oximetry 98 98 Oxygen Delivery [facility] Room Air Room Air DS: Data Data Completed and Pending Completed studies during hospitalization: 08/31/2024 EKG: Normal sinus rhythm, 71 beats per minute, normal EKG. Ordering Physician: Risa Castillo M.D. Date of Service: 08/31/24 Procedure(s): XR chest 1V portable Accession Number(s): [id number] cc: Risa Castillo M.D.; Provider,Not a Local~ For Patients: As a result of the Cures Act, medical imaging exams and procedure reports are released immediately into your electronic medical record. You may view this report before your referring provider. If you have questions, please contact your health care provider. INDICATION: Rapid heart rate. TECHNIQUE: Chest 1 view(s) COMPARISON: None. FINDINGS: Cardiomediastinal silhouette and pulmonary vasculature are normal. Streaky right basilar opacities, likely atelectasis. No focal consolidation. No layering pleural effusion. No pneumothorax. No acute chest wall abnormality. IMPRESSION: No focal consolidation. Dictated by Vlad Josue MD @ 08/31/2024 3:22:45 PM (Electronically Signed) Labs on day of discharge: Labs from last 24 hours 09/01/24 08/31/24 08/31/24 06:18 22:42 20:50 WBC 3.57 L RBC 3.85 L Hgb 11.4 L Hct 34.1 MCV 89 MCH 30 MCHC 33 RDW Coeff of Shantel Plt Count 241 Neut % (Auto) Lymph % (Auto) Crowley % (Auto) Eos % (Auto) Baso % (Auto) Neut # (Auto) Lymph # (Auto) Crowley # (Auto) Eos # (Auto) Baso # (Auto) Abs Immat Gran (auto) Imm/Tot Granulo (auto) Sodium Potassium Chloride Carbon Dioxide Anion Gap BUN Creatinine Estimated Creat Clear Estimated GFR Glucose Lactate 0.5 Calcium Magnesium Total Bilirubin AST ALT Alkaline Phosphatase Troponin I 0.04 0.08 H* C-Reactive Protein NT-Pro-B Natriuret Pep 202 Total Protein Albumin Triglycerides 131 Cholesterol 190 LDL Cholesterol, Calc 73 HDL Cholesterol 91 TSH Urine HCG, Qual SARS-CoV-2 (PCR) Influenza Type A (PCR) Influenza Type B (PCR) RSV (PCR) Lab Acknowledgement Test Added POC Troponin I 08/31/24 08/31/24 08/31/24 18:59 15:56 15:48 WBC RBC Hgb Hct MCV MCH MCHC RDW Coeff of Shantel Plt Count Neut % (Auto) Lymph % (Auto) Crowley % (Auto) Eos % (Auto) Baso % (Auto) Neut # (Auto) Lymph # (Auto) Crowley # (Auto) Eos # (Auto) Baso # (Auto) Abs Immat Gran (auto) Imm/Tot Granulo (auto) Sodium Potassium Chloride Carbon Dioxide Anion Gap BUN Creatinine Estimated Creat Clear Estimated GFR Glucose Lactate Calcium Magnesium Total Bilirubin AST ALT Alkaline Phosphatase Troponin I 0.08 H* 0.04 C-Reactive Protein NT-Pro-B Natriuret Pep Total Protein Albumin Triglycerides Cholesterol LDL Cholesterol, Calc HDL Cholesterol TSH Urine HCG, Qual SARS-CoV-2 (PCR) Influenza Type A (PCR) Influenza Type B (PCR) RSV (PCR) Lab Acknowledgement POC Troponin I 0.03 08/31/24 08/31/24 08/31/24 15:15 14:15 14:10 WBC 5.96 RBC 4.23 Hgb 12.6 Hct 37.1 MCV 88 MCH 30 MCHC 34 RDW Coeff of Shantel 12.8 Plt Count 268 Neut % (Auto) 66.0 Lymph % (Auto) 21.3 Crowley % (Auto) 9.9 Eos % (Auto) 2.3 Baso % (Auto) 0.5 Neut # (Auto) 3.93 Lymph # (Auto) 1.27 Crowley # (Auto) 0.60 Eos # (Auto) 0.14 Baso # (Auto) 0.03 Abs Immat Gran (auto) 0.00 Imm/Tot Granulo (auto) 0.0 Sodium 137 Potassium 3.7 Chloride 102 Carbon Dioxide 24 Anion Gap 11 BUN 18 Creatinine 0.9 Estimated Creat Clear 71.75 Estimated GFR 83 Glucose 90 Lactate Calcium 8.8 Magnesium 1.6 Total Bilirubin 0.7 AST 36 H ALT 27 Alkaline Phosphatase 43 Troponin I C-Reactive Protein < 0.5 L NT-Pro-B Natriuret Pep Total Protein 7.0 Albumin 4.6 Triglycerides Cholesterol LDL Cholesterol, Calc HDL Cholesterol TSH 0.437 Urine HCG, Qual Negative SARS-CoV-2 (PCR) Negative SARS-CoV-2 Influenza Type A (PCR) Negative PCR FLU A Influenza Type B (PCR) Negative PCR FLU B RSV (PCR) Negative PCR RSV Lab Acknowledgement POC Troponin I 08/31/24 14:05 WBC RBC Hgb Hct MCV MCH MCHC RDW Coeff of Shantel Plt Count Neut % (Auto) Lymph % (Auto) Crowley % (Auto) Eos % (Auto) Baso % (Auto) Neut # (Auto) Lymph # (Auto) Crowley # (Auto) Eos # (Auto) Baso # (Auto) Abs Immat Gran (auto) Imm/Tot Granulo (auto) Sodium Potassium Chloride Carbon Dioxide Anion Gap BUN Creatinine Estimated Creat Clear Estimated GFR Glucose Lactate Calcium Magnesium Total Bilirubin AST ALT Alkaline Phosphatase Troponin I C-Reactive Protein NT-Pro-B Natriuret Pep Total Protein Albumin Triglycerides Cholesterol LDL Cholesterol, Calc HDL Cholesterol TSH Urine HCG, Qual SARS-CoV-2 (PCR) Influenza Type A (PCR) Influenza Type B (PCR) RSV (PCR) Lab Acknowledgement POC Troponin I 0.01 Discharge Plan Discharge Disposition: Home, Self-Care Date of Admission: 08/31/24 21:49 Attending Provider on Discharge: Zaida Owusu Primary Care Provider: Provider,Not a Local Condition: Improved Anticipated Discharge Date/Time: 09/01/24 11:54 Discharge Medications: Continued Arnuity Ellipta 100 mcg/actuation blister with device 1 inh INHALATION DAILY Discharge Orders: Discharge Order (Routine); Ordered 09/01/24 Ordered By: Zaida Owusu Patient Education: Tachycardia (ED), High Troponin Levels (GEN), Zio (Home Heart Monitor) Additional Instructions: - Seek medical attention for recurrence of symptoms. - Establish care with [facility] PCP - 1 week - Ziopatch - Outpatient Treadmill stress test (sunday?) Activity Level: No Restrictions Discharge Diet: Regular Follow Up Appointments: Provider,Not a Local [Primary Care Provider] - Forms: ROVOPth Info Instructions
== END 2024-09-01 13:49 | disposition home or self-care (01) ==
LOC: ED 20:56 → MEDSURG 21:12 → ED 21:31 → MEDSURG 21:50
PROVIDERS: Admitting Provider Internal Medicine; Emergency Provider Family Medicine; Visit Provider Internal Medicine
DX: R00.0 Tachycardia, unspecified (principal); R79.89 Other specified abnormal findings of blood chemistry; R20.0 Anesthesia of skin; R20.2 Paresthesia of skin; Z87.891 Personal history of nicotine dependence
CPT/HCPCS: 36415; 71045; 80053; 80061; 81025; 83605; 83735; 83880; 84443; 84484; 85025; 85027; 86140; 87631; 93005; 93246; 93306; 96360; 96372; 99284; 99285; A9270; G0378; J1650; J7030

== ENCOUNTER 2024-09-04 14:49 | Outpatient (CLI) | payer BC, SELFPAY ==
[2024-09-04 15:37] VITALS: BP 138/82; PULSE 69; RESP 16; O2SAT 100
--- NOTE | 2024-09-04 15:57 | W.PM.STED ---
Stress Test Note Date Date Seen: 09/04/24 Date of test: 09/04/24 Providers Referring provider: Zaida Owusu Primary care provider: Karen Mccarthy Stress test physician: Shara Christopher Stress Test Note Stress test ordered: Stress Echo Indication for test: Tachycardia Stress test medicine: None Results discussion: Resting EKG: Sinus rhythm, 71 beats per minute Resting blood pressure: 111/79 Stress test: Patient was consented on stress test ordered. Patient proceeded with standard Bhavin protocol treadmill exercise stress echo. Patient exercised for 12 minutes 2 seconds, stopping meeting exercise capacity an heart rate goal. She had a maximum heart rate of 175 beats per minute which was 114% a calculated target heart rate of 153. This was equivalent to 12.3 Mets. She had a rate pressure product of 23,100. Patient had no symptoms. She had no arrhythmia, 1 single PVC was seen in recovery. There is no evidence of any diagnostic ischemic change on EKG monitoring. Echo images are pending to couple this for a full formal report. Impression: Subjectively negative, objectively negative EKG portion of this stress test. Follow up suggested: Patient discharged in stable condition, await echo images to couple this for a full formal report. Note stress test final report should be faxed to Karen Aiken at [facility].
== END 2024-09-04 15:38 ==
LOC: STRESS 14:49
PROVIDERS: PCP Physician Assistant Medical; Visit Provider Family Medicine
DX: R00.0 Tachycardia, unspecified (principal)
CPT/HCPCS: 93016; 93325; 93351